=== PATIENT | male | born 1960 | race Caucasian/White ===

== ENCOUNTER 2016-10-24 14:29 | Inpatient (IN) | payer OTHER, SELFPAY ==
--- NOTE | ~2016-10-24 | HP ---
History And Physical [place] [address] [facility] [place]. [address] NAME: RENATA FERNANDEZ : 60 STATUS : ADM Tiffany PAT#: [id number] AGE: 56 ADM/REG DATE : 10/24/16 MR#: [id number] REPORT SERV DATE: 10/24/16 DICTATED BY: MADHAVI DANIELLE DATE: 10/24/16 REPORT STATUS : Draft TRANSCRIBED BY: MODL DATE: 10/24/16 DATE OF ADMISSION: 10/24/2016 REASON FOR ADMISSION: Fever, left lower extremity pain, erythema. HISTORY OF PRESENT ILLNESS: This is a 56-year-old male, who apparently works at a [employer] has no psychiatric history personally per patient nor any past medical history except for diverticulitis in 2001. No past surgical history except for tonsillectomy. The patient comes in since Sunday having low-grade fever and then it went to high-grade of 102.7 at one time, and now is 100.8 with a significant left lower extremity erythematous- like, cellulitic-like rash appearance in the left lower extremity, one in the anterior aspect. The patient states, he had a 1 cm ulcerative like puncture site in his anterior left lower extremity region pre date by two months. He has cellulitis like pattern with increased swelling just the past week. Positive nighttime diaphoresis, positive chills. No nausea. No vomiting. No diarrhea. No chest pain. No chest pressure. No shortness of breath. REVIEW OF SYSTEMS: A 10-point review of systems done, see HPI. Otherwise, negative. The patient states that, he may have received this cellulitis like pattern after working in the garden. Claims, he was not punctured by any insects or animals, unclear if it is from any roses. PAST MEDICAL HISTORY: See above. PAST SURGICAL HISTORY: See above. ALLERGIES: NO KNOWN DRUG ALLERGIES. SOCIAL HISTORY: Still smokes cigarettes at least 30 pack year history pack a day. No alcohol. No drug use. , lives at home. FAMILY HISTORY: Hypertension at least one parent. OBJECTIVE: VITAL SIGNS: He is currently 140 systolic, was 130/75, 100.8 temp, 118 pulse, 22 respirations, 98% on room air. GENERAL: No acute distress. HEENT: PERRLA. No scleral icterus. CARDIOVASCULAR: Tachycardic, otherwise no murmur. RESPIRATORY: Clear to auscultation bilaterally. No wheezes. No crackles. ABDOMEN: Nontender, nondistended. Positive bowel sounds. EXTREMITIES: Does have about 2+ pitting edema. Non-blanching erythematous cellulitic like rash in left lower extremity. It is painful due to moderate touch. NEURO: GCS 15. A and O x4. PSYCH: Normal affect and mood. History And Physical [address] [address] NAME: RENATA FERNANDEZ : 60 STATUS : ADM Tiffany PAT#: [id number] AGE: 56 ADM/REG DATE : 10/24/16 MR#: [id number] REPORT SERV DATE: 10/24/16 DICTATED BY: MADHAVI DANIELLE DATE: 10/24/16 REPORT STATUS : Draft TRANSCRIBED BY: SHARDA DATE: 10/24/16 LABORATORY DATA: Labs show a white count of 8.8, hemoglobin 14.4, 132,000 platelets. 3.7 potassium, 27 bicarb, 1.01 creatinine, 13 BUN, 134 sodium, 92 sugar, albumin is 3.4, otherwise LFTs are normal. Urinalysis is clean. EKG is pending. ASSESSMENT/PLAN: 1. Clinical left lower extremity cellulitis with likely vector factor being possible onychomycosis versus his left anterior tapia puncture site. states, he may have had a bull's eye like pattern, appears very nebulous. 2. Sepsis, has fever, has heart rate more than 90, meets criteria, sources due to #1. 3. Thrombocytopenia. 4. Left lower extremity swelling, rule out venous thromboembolism, may be more sedentary recently. PLAN: We will go ahead and admit this patient. Left lower extremity ultrasound. The patient works at a mental health facility, therefore need to cover for anti-Pseudomonas and has some weak MRSA anti-property with Levaquin. We will swab his nares for MRSA. We will get an IgM, IgG, Lyme disease DIOMEDES given concern. We will also with a bull's eye from the , placed on p.r.n. hydralazine, a.m. CBC with peripheral smear regarding his thrombocytopenia. See rest of my orders. All questions were answered. It took well over 60 minutes to do reference [employer] and [employer]. WST/MODL Madhavi Danielle DO / [id number] CC: Constanza Ying M.D.
--- NOTE | ~2016-10-24 | DS ---
Discharge Summary [facility] [address] [facility] [place]. [address] NAME: RENATA FERNANDEZ : 60 STATUS : DIS Tiffany PAT#: [id number] AGE: 56 ADM/REG DATE : 10/24/16 MR#: [id number] REPORT SERV DATE: 10/28/16 DICTATED BY: HERRERA PINTO DATE: 10/27/16 REPORT STATUS : Draft TRANSCRIBED BY: SHARDA DATE: 10/27/16 ADMISSION DATE: 10/24/2016 DISCHARGE DATE: 10/27/2016 REASON FOR ADMISSION: This is a 56-year-old male, who had come in with fever, left lower extremity pain and erythema. 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 He had come in with a low-grade fever and then in the emergency room had a fever of 102.7, with significant left lower extremity erythema and had had a 1 cm puncture site, speculated from where he had been working in the garden. DISCHARGE DIAGNOSIS: Left lower extremity cellulitis. HOSPITAL COURSE: The patient was admitted and initially started on IV Levaquin. He would then be converted over to IV clindamycin and Ancef. The patient after 48 hours of IV antibiotic would show great improvement in his cellulitis. The patient never had an elevated white cell count and never had repeated fevers after the initial fevers on admit. We are giving a prescription for oral clindamycin to finish out treatment. DISCHARGE CONDITION: Stable. DISCHARGE MEDICATIONS: Clindamycin 600 mg p.o. q.8 hours x14 doses. DISCHARGE PLAN: The patient is discharged to home. Complete antibiotic course and follow up with his primary care in one to two weeks. DICTATED BY: RADHA Strickland/SHARDA Herrera Pinto APN / [id number] CC: Constanza Garrett M.D.
[2016-10-24 15:15] LABS: BASOPHILS 0.1 %; BASOPHILS ABSOLUTE 0.01 10/3/uL (0.0-0.16); EOSINOPHILS 0 %; HEMATOCRIT 40.3 % (40.0-51.0); HEMOGLOBIN 14.4 g/dL (13.6-17.8); IMMATURE GRANULOCYTES 0.2 %; IMMATURE GRANULOCYTES ABSOLUTE 0.02 10/3/uL (0.0-0.11); LYMPHOCYTES 8.7 %; LYMPHOCYTES ABSOLUTE 0.76 10/3/uL (0.67-4.30); MANUAL DIFF NO %; MEAN CORPUS HGB CONC 35.7 g/dL (32.0-36.0); MEAN CORPUSCULAR VOLUME 92.2 fL (80-100); MONOCYTES 8.1 %; MONOCYTES ABSOLUTE 0.71 10/3/uL (0.21-1.20); NEUTROPHILS 82.9 %; NEUTROPHILS ABSOLUTE 7.27 10/3/uL (2.02-8.40); PLATELET COUNT 132 10/3/uL (150-400); RBC DISTRIBUTION WIDTH 12.8 % (12.0-16.0); RED CELL COUNT 4.37 10/6/uL (4.7-6.1); WHITE BLOOD CELLS 8.8 10/3/uL (4.5-10.5)
[2016-10-24 15:23] LABS: INTERNATIONAL NORMAL RATI 1.1 UNITS (-); PROTIME (NOT ORD) 14.2 SEC (12.0-14.5)
[2016-10-24 15:24] LABS: PARTIAL THROMBO TIME 40.7 SEC (22.5-37.2)
[2016-10-24 15:29] LABS: A/G RATIO 0.9 (0.7-1.9); ALBUMIN 3.4 G/DL (3.5-5.0); ALKALINE PHOSPHATASE 66 U/L (45-117); BUN (BLOOD UREA NITROGEN) 13 MG/DL (6-23); CALCIUM, SERUM 8.4 MG/DL (8.5-10.4); CHLORIDE, SERUM 102 MMOL/L (96-112); CO2 (CARBON DIOXIDE) 27 MMOL/L (24-34); CREATININE 1.01 MG/DL (0.70-1.30); GFR AFRICAN AMERICAN 96 ML/MIN (>=60); GFR NON AFRICAN AMERICAN 83 ML/MIN (>=60); GLOBULIN 3.7 G/DL (2.5-4.1); GLUCOSE, SERUM 92 MG/DL (60-99); POTASSIUM, SERUM 3.7 MMOL/L (3.5-5.3); SGOT(AST) 16 U/L (5-40); SGPT(ALT) 18 U/L (5-65); SODIUM, SERUM 134 MMOL/L (135-148); TOTAL BILIRUBIN 0.5 MG/DL (0-1.2); TOTAL PROTEIN 7.1 G/DL (6.0-8.5)
[2016-10-24 15:34] LABS: LACTATE 1.3 MMOL/L (0.3-2.4)
[2016-10-24 16:02] LABS: PROCALCITONIN 0.33 ng/mL (<0.5)
[2016-10-24 17:29] LABS: ASCORBIC ACID (UR NOT ORDER) NEG (NEG); BILIRUBIN, URINE NEGATIVE (NEG); ER URINALYSIS TAT 0 Hrs 12 Mins; KETONE, URINE 20 MG/DL (NEG); LEUKOCYTE ESTERASE(NOT OR NEG (NEG); NITRITE (URINE) NEG (NEG); WBC (NOT ORDERED) (RFLEX) 3 (0-5)
[2016-10-24] MEDS ORDERED: ADVIL PO (18:15)
[2016-10-24] MEDS ORDERED: T PO (18:15)
[2016-10-24 20:51] LABS: ULTRASENSITIVE TSH 0.887 MCIU/ML (0.358-3.740)
[2016-10-25 04:08] LABS: BASOPHILS 0.4 %; BASOPHILS ABSOLUTE 0.02 10/3/uL (0.0-0.16); EOSINOPHILS 0.8 %; EOSINOPHILS ABSOLUTE 0.04 10/3/uL (0.0-0.53); HEMATOCRIT 38.3 % (40.0-51.0); HEMOGLOBIN 13.5 g/dL (13.6-17.8); IMMATURE GRANULOCYTES 0.2 %; IMMATURE GRANULOCYTES ABSOLUTE 0.01 10/3/uL (0.0-0.11); LYMPHOCYTES 26.7 %; LYMPHOCYTES ABSOLUTE 1.35 10/3/uL (0.67-4.30); MANUAL DIFF NO %; MEAN CORPUS HGB CONC 35.2 g/dL (32.0-36.0); MEAN CORPUSCULAR HEMOGLOB 32.6 pg (26.0-34.0); MEAN CORPUSCULAR VOLUME 92.5 fL (80-100); MONOCYTES 13.5 %; MONOCYTES ABSOLUTE 0.68 10/3/uL (0.21-1.20); NEUTROPHILS 58.4 %; NEUTROPHILS ABSOLUTE 2.95 10/3/uL (2.02-8.40); PLATELET COUNT 134 10/3/uL (150-400); RBC DISTRIBUTION WIDTH 12.6 % (12.0-16.0); RED CELL COUNT 4.14 10/6/uL (4.7-6.1); WHITE BLOOD CELLS 5.1 10/3/uL (4.5-10.5)
[2016-10-25 04:32] LABS: A/G RATIO 0.8 (0.7-1.9); ALKALINE PHOSPHATASE 60 U/L (45-117); BUN (BLOOD UREA NITROGEN) 13 MG/DL (6-23); CALCIUM, SERUM 8.3 MG/DL (8.5-10.4); CHLORIDE, SERUM 109 MMOL/L (96-112); CREATININE 0.74 MG/DL (0.70-1.30); GFR AFRICAN AMERICAN 120 ML/MIN (>=60); GFR NON AFRICAN AMERICAN 103 ML/MIN (>=60); GLOBULIN 3.4 G/DL (2.5-4.1); GLUCOSE, SERUM 87 MG/DL (60-99); PHOSPHORUS, SERUM 2.7 MG/DL (2.5-4.5); POTASSIUM, SERUM 3.7 MMOL/L (3.5-5.3); SGOT(AST) 17 U/L (5-40); SGPT(ALT) 16 U/L (5-65); TOTAL BILIRUBIN 0.4 MG/DL (0-1.2); TOTAL PROTEIN 6.1 G/DL (6.0-8.5); TROPONIN I <0.02 NG/ML (<0.05)
[2016-10-25 04:35] LABS: ALBUMIN 2.7 G/DL (3.5-5.0); CO2 (CARBON DIOXIDE) 22 MMOL/L (24-34); SODIUM, SERUM 141 MMOL/L (135-148)
[2016-10-25 05:00] LABS: PROCALCITONIN 0.28 ng/mL (<0.5)
[2016-10-26 04:22] LABS: BASOPHILS 0.5 %; BASOPHILS ABSOLUTE 0.02 10/3/uL (0.0-0.16); EOSINOPHILS 2.6 %; EOSINOPHILS ABSOLUTE 0.11 10/3/uL (0.0-0.53); HEMATOCRIT 37.1 % (40.0-51.0); HEMOGLOBIN 12.7 g/dL (13.6-17.8); LYMPHOCYTES 39.8 %; MEAN CORPUS HGB CONC 34.2 g/dL (32.0-36.0); MEAN CORPUSCULAR HEMOGLOB 31.8 pg (26.0-34.0); MEAN PLATELET VOLUME 10.5 fL (9.2-13.0); MONOCYTES ABSOLUTE 0.47 10/3/uL (0.21-1.20); NEUTROPHILS 46.1 %; NEUTROPHILS ABSOLUTE 1.97 10/3/uL (2.02-8.40); PLATELET COUNT 147 10/3/uL (150-400); RBC DISTRIBUTION WIDTH 12.7 % (12.0-16.0); RED CELL COUNT 3.99 10/6/uL (4.7-6.1); WHITE BLOOD CELLS 4.3 10/3/uL (4.5-10.5)
[2016-10-26 04:31] LABS: MANUAL DIFF NO %
[2016-10-26 04:39] LABS: CALCIUM, SERUM 8.1 MG/DL (8.5-10.4); CHLORIDE, SERUM 110 MMOL/L (96-112); CREATININE 0.62 MG/DL (0.70-1.30); GFR AFRICAN AMERICAN 129 ML/MIN (>=60); GFR NON AFRICAN AMERICAN 111 ML/MIN (>=60); GLUCOSE, SERUM 91 MG/DL (60-99); POTASSIUM, SERUM 3.7 MMOL/L (3.5-5.3); SODIUM, SERUM 143 MMOL/L (135-148)
[2016-10-26 04:40] LABS: BUN (BLOOD UREA NITROGEN) 9 MG/DL (6-23); CO2 (CARBON DIOXIDE) 27 MMOL/L (24-34); PHOSPHORUS, SERUM 3.7 MG/DL (2.5-4.5)
[2016-10-27 04:44] LABS: BASOPHILS 0.4 %; BASOPHILS ABSOLUTE 0.02 10/3/uL (0.0-0.16); EOSINOPHILS 5.1 %; EOSINOPHILS ABSOLUTE 0.26 10/3/uL (0.0-0.53); HEMATOCRIT 36.4 % (40.0-51.0); HEMOGLOBIN 12.7 g/dL (13.6-17.8); IMMATURE GRANULOCYTES 0.2 %; IMMATURE GRANULOCYTES ABSOLUTE 0.01 10/3/uL (0.0-0.11); LYMPHOCYTES 32.3 %; LYMPHOCYTES ABSOLUTE 1.64 10/3/uL (0.67-4.30); MEAN CORPUS HGB CONC 34.9 g/dL (32.0-36.0); MEAN CORPUSCULAR HEMOGLOB 32.4 pg (26.0-34.0); MEAN CORPUSCULAR VOLUME 92.9 fL (80-100); MEAN PLATELET VOLUME 10.5 fL (9.2-13.0); MONOCYTES 7.7 %; MONOCYTES ABSOLUTE 0.39 10/3/uL (0.21-1.20); NEUTROPHILS 54.3 %; NEUTROPHILS ABSOLUTE 2.76 10/3/uL (2.02-8.40); PLATELET COUNT 153 10/3/uL (150-400); RBC DISTRIBUTION WIDTH 12.7 % (12.0-16.0); RED CELL COUNT 3.92 10/6/uL (4.7-6.1); WHITE BLOOD CELLS 5.1 10/3/uL (4.5-10.5)
[2016-10-27 04:49] LABS: MANUAL DIFF NO %
[2016-10-27 04:58] LABS: BUN (BLOOD UREA NITROGEN) 7 MG/DL (6-23); CALCIUM, SERUM 8.4 MG/DL (8.5-10.4); CHLORIDE, SERUM 111 MMOL/L (96-112); CO2 (CARBON DIOXIDE) 26 MMOL/L (24-34); CREATININE 0.62 MG/DL (0.70-1.30); GFR AFRICAN AMERICAN 129 ML/MIN (>=60); GFR NON AFRICAN AMERICAN 111 ML/MIN (>=60); GLUCOSE, SERUM 97 MG/DL (60-99); PHOSPHORUS, SERUM 3.9 MG/DL (2.5-4.5); POTASSIUM, SERUM 3.8 MMOL/L (3.5-5.3); SODIUM, SERUM 141 MMOL/L (135-148)
[2016-10-27] MEDS ORDERED: CLEOCIN300 MG PO (11:09)
== END 2016-10-27 11:35 | disposition home or self-care (01) | DRG 603 ==
LOC: ER 14:29 → CDU1 18:42 → SDC/OF 19:20 → CDU1 19:22
PROVIDERS: Internal Medicine; Physician Assistant
DX: L03.116 Cellulitis of left lower limb (principal); D69.6 Thrombocytopenia, unspecified; F17.210 Nicotine dependence, cigarettes, uncomplicated; Z82.49 Family history of ischemic heart disease and other diseases of the circulatory system
CPT/HCPCS: 71010; 80048; 80053; 81001; 82962; 83036; 83605; 83735; 84100; 84145; 84443; 84484; 85025; 85610; 85652; 85730; 86140; 87040; 87449; 87476; 87641; 93005; 93971; 96365; 96372; 96375; 96376; 99285; A9270-GY; G0378; J0690; J1956; J3370